=== PATIENT | male | born 1965 | race Caucasian/White ===

== ENCOUNTER → 2016-12-17 16:22 | Emergency (ER) | payer SELFPAY ==
[~2016-12-17 16:22] MED LIST: HYDROmorphone* 1 MG/ML 1 ML SYR IM ONE
[2016-12-17 16:31] VITALS: BP 126/73
--- NOTE | 2016-12-17 17:28 | RAD ---
HISTORY: Scapular dislocation COMPARISONS: None VIEWS: 2, Frontal and lateral views of the left scapula FINDINGS: BONE DENSITY: Normal. BONES: There is no displaced fracture. JOINTS: There is no arthropathy. ALIGNMENT: There is superior displacement of the scapula. The glenohumeral articulation is anatomic. SOFT TISSUES: Unremarkable. OTHER FINDINGS: None. IMPRESSION: SUPERIOR DISPLACEMENT OF THE SCAPULA. NO ACUTE OSSEOUS INJURY. IF SYMPTOMS PERSIST, RECOMMEND REPEAT IMAGING.
--- NOTE | 2016-12-18 18:15 | ED ---
Aubrie Obregon Edward, scribed for Zhen Braxton MD on 12/17/16 at 1654 . 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 Patient states that a heavy box fell on him while he was working today, which caused him to fall and dislocate his scapula. PMHx none. Unable to obtain FHx due to patient growing up in a foste home. Patient smokes a pack a day. Allergic to NSAIDs. - History of Current Complaint Chief Complaint: EDNeckComplaint Stated Complaint: NECK AND SHOULDR PAIN Hx Obtained From: Patient Mechanism of Injury: Direct Blow - Heavy box fell on him, causing him to fall, Fall - Heavy box fell on him, causing him to fall Loss of Consciousness: no loss of consciousness Onset Severity: Moderate Current Severity: Mild Pain Intensity: 5 Pain Scale Used: 0-10 Numeric Location: Neck - Left shoulder - Allergy/Home Medications Allergies/Adverse Reactions: Allergies Allergy/AdvReac Type Severity Reaction Status Date / Time No Known Allergies Allergy Verified 12/17/16 16:52 PMH/Surg Hx/FS Hx/Imm Hx Previously Healthy: Yes Endocrine/Hematology History: Denies: Hx Diabetes Cardiovascular History: Denies: Hx Coronary Artery Disease Infectious Disease History: No Infectious Disease History: Denies: Traveled Outside the [place] in Last 30 Days - Family History Known Family History: Positive: None - Unable to obtain due to patient growing up in foster home. - Social History Hx Tobacco Use: Yes Smoking Status (MU): Current Every Day Smoker - Smokes a pack a day Review of Systems All Other Systems Reviewed And Are Negative: Yes Physical Exam - Summary Physical Exam Summary: Left sapula is dislocated, superior to normal position Vital Signs On Initial Exam: Initial Vitals Temp Pulse Resp BP Pulse Ox 97.9 F 75 20 126/73 99 12/17/16 16:28 12/17/16 16:28 12/17/16 16:28 12/17/16 16:28 12/17/16 16:28 Diagnostics - Vital Signs Vital Signs Temp Pulse Resp BP Pulse Ox 12/17/16 16:49 97.5 F 97 20 126/73 98 12/17/16 16:28 97.9 F 75 20 126/73 99 - Laboratory Lab Statement: Any lab studies that have been ordered have been reviewed, and results considered in the medical decision making process. - Radiology Scapula XRAY Xray Interpretation: Positive (See Comments) - SUPERIOR DISPLACEMENT OF THE SCAPULA. NO ACUTE OSSEOUS INJURY. IF SYMPTOMS PERSIST, RECOMMEND REPEAT IMAGING. 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 He showed me a Youtube video by Beto for reducing locked scapula dislocations. He reported using 2 mg dilaudid IM for tendons and muscles to relax and to reduce dislocations of his scapula. Therefore, he was given 2mg IM dilaudid and he helped us with the video by pointing where we have to push to reduce the scapulua dislocation. Reduction of scapula dislocation was successful. Patient was discharged, however at this moment the patient reported dislocation of the scapula again. However, in the initial attmept to reduce the dislocation I felt that he reduced it himself. I did not reduce it myself. Therfore it was very suspicious that the pt dislocated it again. He requested another 2 mg of dilaudid for the second attempt. I was very hesitant to give him another 2 mg of dilaudid, therefore I offered him Versed and Fentanyl to do a little conscious sedation in order to obtain the reduction. The patient was very upset because he only wanted dilaudid. Also 2 of the travelling nurses from [facility] knew him becuase he usually goes to those ED with the same complaint and requested the same medication. At this point I told him I was not comfortable giving him dilaudid and told him I will do conscious sedation and he refused. He signed AMA. He understands the risks and benefits of signing AMA - Diagnoses Differential Diagnosis/HQI/PQRI: Positive: Contusion(s), Fracture, Strain Provider Diagnoses: Closed dislocation of left scapula Discharge - Discharge Plan Condition: Good Disposition: AGAINST MEDICAL ADVICE Referrals: Non Staff,Doctor [Primary Care Provider] - The documentation as recorded by the Aubrie morris Edward accurately reflects the service I personally performed and the decisions made by me, Zhen Brxaton MD.
== END | disposition left against medical advice (07) ==
LOC: EDBD → ED 16:22
DX: S43.315A Dislocation of left scapula, initial encounter (principal); W19.XXXA Unspecified fall, initial encounter; Y93.9 Activity, unspecified; Y92.9 Unspecified place or not applicable; Y99.9 Unspecified external cause status; F17.210 Nicotine dependence, cigarettes, uncomplicated; Z53.21 Procedure and treatment not carried out due to patient leaving prior to being seen by health care provider
CPT/HCPCS: 96372; 99282; J1170